=== PATIENT | female | born 1975 | race Two or more races ===

== ENCOUNTER 2025-03-15 18:20 | Inpatient (IN) | payer OTHER ==
[~2025-03-15] VITALS: Ht 162.6 cm; Wt 59.9 kg
--- NOTE | 2025-03-15 18:41 | ED.PDOC ---
GI ASSESSMENT HPI Comments 49-year-old female came to ER for abdominal pain. Patient denies any history of abdominal surgeries. States few hours ago she started having episodes of epigastric abdominal pain, radiating downwards. Omeprazole taken offered no relief for the pain. Patient will then feel nauseated, vomited once, yellowish- blackish in color. Patient went to urgent Care but advised to go to the ER for further evaluation and management Chief Complaint: Abdominal Pain Time Seen by MD: 18:41 Reviewed Notes: Nurses Notes Allergies: Coded Allergies: NO KNOWN ALLERGIES (Unverified , 03/15/25) Information Source: Patient, Relative Mode of Arrival: Ambulatory Timing: Hours Duration: Intermittent Quality: Sharp Vomitus: Coffee Grounds Stool: Normal Severity: Moderate Recent: None Recent Hx of: Ulcer Disease Pain Location: Epigastric Associated sign and symptoms: Nausea, Vomiting, Abdominal Pain Past Medical History PAST MEDICAL HISTORY: Denies Surgical History: Denies all surgeries INTELLIGENCE OPERATIONS History: Denies all INTELLIGENCE OPERATIONS Hx Family History Family History: Reviewed,noncontributory to illness Social History Smoker: Non-Smoker Alcohol: Denies ETOH Use Drugs: Denies Drug Use Lives In: Home Constitutional: denies: chills, diaphoresis, fatigue, fever, malaise, sweats, weakness, others EENTM: denies: blurred vision, double vision, ear bleeding, ear discharge, ear drainage, ear pain, ear ringing, eye pain, eye redness, hearing loss, mouth pain, mouth swelling, nasal discharge, nose bleeding, nose congestion, nose pain, photophobia, tearing, throat pain, throat swelling, voice changes, others Respiratory: denies: cough, hemoptysis, orthopnea, SOB at rest, shortness of breath, SOB with excertion, stridor, wheezing, others Cardiovascular: denies: chest pain, dizzy spells, diaphoresis, Dyspnea on exertion, edema, irregular heart beat, left arm pain, lightheadedness, palpitations, PND, syncope, others Gastrointestinal: reports: abdominal pain, nausea, vomiting; denies: abdomen distended, blood streaked bowels, constipated, diarrhea, dysphagia, difficulty swallowing, hematemesis, melena, poor appetite, poor fluid intake, rectal bleeding, rectal pain, others Genitourinary: denies: abnormal vagina bleeding, burning, dyspareunia, dysuria, flank pain, frequency, hematuria, incontinence, pain, , vagina discharge, urgency, others Neurological: denies: dizziness, fainting, headache, left sided numbness, left sided weakness, numbness, paresthesia, pre-existing deficit, right sided numbness, right sided weakness, seizure, speech problems, tingling, tremors, weakness, others Musculoskeletal: denies: back pain, gout, joint pain, joint swelling, muscle pain, muscle stiffness, neck pain, others Integumetry: denies: bruises, change in color, change in hair/nails, dryness, laceration, lesions, lumps, rash, wounds, others Allergic/Immunocompromised: denies: Difficulty Healing, Frequent Infections, Hives, Itching, others Hematologic/Lymphatic: denies: anemia, blood clots, easy bleeding, easy bruising, swollen glands, others Endocrine: denies: excessive hunger, excessive sweating, excessive thirst, excessive urination, flushing, intolerance to cold, intolerance to heat, unexplained weight gain, unexplained weight loss, others Psychiatric: denies: anxiety, bipolar disorder, depression, hopeless, panic disorder, schizophrenia, sleepless, suicidal, others Physical Exam General Appearance: No Apparent Distress, Normal HEENT: Normal ENT Inspection, Pharynx Normal, TMs Normal Neck: Full Range of Motion, Non-Tender, Normal, Normal Inspection Respiratory: Chest Non-Tender, Lungs Clear, No Accessory Muscle Use, No Respiratory Distress, Normal Breath Sounds Cardiovascular: No Edema, No JVD, No Murmur, No Gallop, Normal Peripheral Pulses, Regular Rate/Rhythm Breast Exam: Deferred Gastrointestinal: Epigastric, No Organomegaly, No Pulsatile Mass, Normal Bowel Sounds, Soft, Tenderness Genitalia: Deferred Pelvic: Deferred Rectal: Deferred Extremities: No calf tenderness, Normal capillary refill, Normal inspection, Normal range of motion, Non-tender, No pedal edema Musculoskeletal : Apperance: Normal Neurologic: Alert, stock grader II-XII nml as Tested, No Motor Deficits, Normal Affect, Normal Mood, No Sensory Deficits Cerebellar Function: Normal Reflexes: Normal Skin: Dry, Normal Color, Warm Lymphatic: No Adenopathy Was a procedure done? Was a procedure done?: No GI differential Dx Differential Diagnosis: Diverticular disease, Gastritis/PUD, Gastroenteritis, GI hemorrhage, Pancreatitis, UTI, Urolithiasis X-Ray, Labs, Meds, VS Vital Signs Date Time Temp Pulse Resp B/P (MAP) Pulse Ox O2 Delivery O2 Flow Rate FiO2 03/15/25 21:21 97.8 65 17 109/55 (73) 100 97.8 03/15/25 20:07 78 20 108/64 03/15/25 20:00 78 20 100 Room Air* 0 21 03/15/25 19:31 98.2 78 20 108/64 (79) 100 98.2 03/15/25 18:22 98.2 60 16 129/59 99 98.2 Lab Test 03/15/25 22:00 03/15/25 18:50 Range/Units Urine Color Yellow Yellow Urine Clarity Clear Clear Urine pH 6.0 5.0-9.0 Urine Specific [place] 1.021 1.001-1.035 Urine Protein Negative Negative Urine Ketones 2+ H Negative Urine Blood Negative Negative /uL Urine Nitrite Negative Negative Urine Bilirubin Negative Negative Urine Urobilinogen Normal Negative mg/dL Urine Leukocyte Esterase Negative Negative /uL Urine RBC 1 0 - 4 /hpf Urine Microscopic WBC 2 0-5 /HPF Urine Squamous Epithelial Cells Few <5 /hpf Urine Bacteria Few H None Seen /hpf Urine Mucus Few None Seen Urine Glucose Normal Normal mg/dL Urine Test Negative Negative White Blood Count 15.1 H 4.4-10.8 10^3/uL Red Blood Count 4.59 4.0-5.20 10^6/uL Hemoglobin 14.4 12.2-16.2 g/dL Hematocrit 43.8 36.0-46.0 % Mean Corpuscular Volume 95.3 80.0-100.0 fL Mean Corpuscular Hemoglobin 31.4 28.0-32.0 pg Mean Corpuscular Hemoglobin Concent 33.0 32.0-36.0 g/dL Red Cell Distribution Width 13.0 11.8-14.3 % Platelet Count 286 140-450 10^3/uL Mean Platelet Volume 8.6 6.9-10.8 fL Neutrophils (%) (Auto) 91.0 H 37.0-80.0 % Lymphocytes (%) (Auto) 5.8 L 10.0-50.0 % Monocytes (%) (Auto) 2.9 0.0-12.0 % Eosinophils (%) (Auto) 0.1 0.0-7.0 % Basophils (%) (Auto) 0.2 0.0-2.0 % Neutrophils # (Auto) 13.8 H 1.6-8.6 10 ^3/uL Lymphocytes # (Auto) 0.9 0.4-5.4 10 ^3/uL Monocytes # (Auto) 0.4 0-1.3 10 ^3/uL Eosinophils # (Auto) 0 0-0.8 10 ^3/uL Basophils # (Auto) 0 0-0.2 10 ^3/uL Nucleated Red Blood Cells 0.0 % Sodium Level 137 136-145 mmol/L Potassium Level 3.7 3.5-5.1 mmol/L Chloride Level 102 98-107 mmol/L Carbon Dioxide Level 25 20-31 mmol/L Anion Gap 10 5-15 Blood Urea Nitrogen 8 L 9-23 mg/dL Creatinine 0.93 0.550-1.02 mg/dL Glomerular Filtration Rate Calc 76 >90 mL/min BUN/Creatinine Ratio 8.6 L 10.0-20.0 Serum Glucose 106 74-106 mg/dL Calcium Level 9.7 8.7-10.4 mg/dL Total Bilirubin 0.8 0.2-1.0 mg/dL Aspartate Amino Transferase (AST) 19 13-40 U/L Alanine Aminotransferase (ALT) 11 7-40 U/L Alkaline Phosphatase 120 H 46-116 U/L Total Protein 8.4 H 5.7-8.2 g/dL Albumin 5.0 H 3.2-4.8 g/dL Lipase 37 12-53 U/L Current Medications Medications (Trade) Dose Ordered Sig/Kerwin Route Start Time Stop Time Status Last Admin Ondansetron HCl (Zofran) 4 mg ONCE ONCE IV 03/15/25 18:45 03/15/25 18:46 DC 03/15/25 20:05 Sodium Chloride 1,000 ml @ 1,000 mls/hr Q1H ONCE IVB 03/15/25 18:45 03/15/25 19:44 DC 03/15/25 20:07 Morphine Sulfate 4 mg ONCE ONCE IV 03/15/25 18:45 03/15/25 18:46 DC 03/15/25 20:07 Time of 1ST Reevaluation: 18:38 Reevaluation 1ST: Unchanged Patient Education/Counseling: Diagnosis, Treatment Family Education/Counseling: Diagnosis, Treatment SEPSIS Sepsis Screen Date sepsis recognized/suspect: Mar 15, 2025 Time Sepsis recognized/suspect: 1821 Recent Procedure: No On Antibiotic Therapy: No Respiratory Rate >20: No Heart Rate >90: No Temp<36 C (96.8 F) or >38.3 C: No SBP <90 or MAP <65 mmHG: No New Acute Mental Status Change: No Is the patient on CPAP, BIPAP,: No Physician Orders Ct Ab Pel With Iv Con Only (03/15/25 18:36) Vital Signs Date Time Temp Pulse Resp B/P (MAP) Pulse Ox O2 Delivery O2 Flow Rate FiO2 03/15/25 21:21 97.8 65 17 109/55 (73) 100 97.8 03/15/25 20:07 78 20 108/64 03/15/25 20:00 78 20 100 Room Air* 0 21 03/15/25 19:31 98.2 78 20 108/64 (79) 100 98.2 03/15/25 18:22 98.2 60 16 129/59 99 98.2 Laboratory Tests Test 03/15/25 18:50 White Blood Count 15.1 10^3/uL (4.4-10.8) H Medications Medications Dose Ordered Sig/[place] Route Start Time Stop Time Status Last Admin Dose Admin Morphine Sulfate 4 mg ONCE ONCE IV 03/15/25 18:45 03/15/25 18:46 DC 03/15/25 20:07 Ondansetron HCl 4 mg ONCE ONCE IV 03/15/25 18:45 03/15/25 18:46 DC 03/15/25 20:05 Sodium Chloride 1,000 ml @ 1,000 mls/hr Q1H ONCE IVB 03/15/25 18:45 03/15/25 19:44 DC 03/15/25 20:07 Departure 1 Departure Time of Disposition: 00:10 Impression: Primary Impression: Appendicitis Disposition: ADMITTED INPATIENT Admit to: Med Surg Condition: Guarded Comments 49-year-old female with generalized abdominal pain and nausea and vomiting. Patient is tender especially around the umbilicus. On lab reviewed white blood cell count is elevated at 15. CT of the abdomen and pelvis shows a enlarged appendix suspicious for appendicitis. Patient will need to be admitted for supportive care and general surgery evaluation for possible appendectomy Critical Care Note Critical Care Time?: No Stability Stability form required: No Heart Score Heart Score: Heart Score Response (Comments) Value History N/A 0 EKG N/A 0 Age N/A 0 Risk Factors N/A 0 Troponin N/A 0 Total 0 I personally scribed for TRU BARCENAS MD ([email or web address]) on 03/15/25 at 18:41. Electronically submitted by Lavell Connor ([email or web address]). TRU BARCENAS MD Mar 15, 2025 18:41
[2025-03-15 19:06] LABS: Hematocrit 43.8 % (36.0-46.0); Hemoglobin 14.4 g/dL (12.2-16.2); Mean Corpuscular Hemoglobin 31.4 pg (28.0-32.0); Mean Corpuscular Volume 95.3 fL (80.0-100.0); Nucleated Red Blood Cells % 0.0 %
[2025-03-15 19:22] LABS: Alanine Aminotransferase 11 U/L (7-40); Anion Gap 10 (5-15); BUN/Creatinine Ratio 8.6 (10.0-20.0); Bilirubin, Total 0.8 mg/dL (0.2-1.0); Calcium 9.7 mg/dL (8.7-10.4); Carbon Dioxide 25 mmol/L (20-31); Chloride 102 mmol/L (98-107); Lipase 37 U/L (12-53); Potassium 3.7 mmol/L (3.5-5.1); Sodium 137 mmol/L (136-145)
[2025-03-15 19:24] LABS: Albumin 5.0 g/dL (3.2-4.8); Alkaline Phosphatase 120 U/L (46-116); Blood Urea Nitrogen 8 mg/dL (9-23); Glucose 106 mg/dL (74-106); Total Protein 8.4 g/dL (5.7-8.2)
[2025-03-15 20:00] VITALS: PULSE 78; RESP 20; O2SAT 100
[2025-03-15] MEDS: ONDANSETRON HCL 4 MG/2 ML VIAL IV ONE (20:05)
[2025-03-15] MEDS: MORPHINE SULFATE 4 MG/ML SYR/VIAL IV ONE (20:07)
[2025-03-15] MEDS: SODIUM CHLORIDE 0.9% 1,000 ML IVB ONE (20:07)
[2025-03-15] MEDS: IOHEXOL 300 MG/ML 100ML BOTTLE IJ ONE (22:05)
[2025-03-15 22:50] LABS: Urine Protein, UAD Negative (Negative)
--- NOTE | 2025-03-15 23:55 | DVH ---
CLINICAL HISTORY: abd pain TECHNIQUE: CT of the abdomen and pelvis was performed with intravenous contrast. 100 mL Omnipaque 300 This exam was performed according to our departmental dose optimization program. Up-to-date CT equip ment and radiation dose reduction techniques are utilized as appropriate. 6.11 CTDIVol: 6.11 mGy DLP: 302.19 mGy-cm WID: COMPARISON: None FINDINGS: Lower Thorax: Unremarkable. Liver and Biliary system: Unremarkable. Spleen: Unremarkable. Adrenal Glands and Kidneys: Normal adrenal glands. No hydronephrosis or nephrolithiasis. There is a tiny cyst in the lower pole right kidney. Pancreas and Retroperitoneum: Unremarkable. Aorta and Major Vessels: Unremarkable. Bowel, Mesentery and Peritoneal space: Normal caliber small and large bowel. There is mild dilatation of the appendix measuring 1 cm on series 2, image 62. Mild ascites. No free air or loculated fluid c ollection. Pelvis: Unremarkable. Abdominal wall and Osseous Structures: Tiny sclerotic foci in the proximal femurs and pelvis. No dest ructive osseous lesion. IMPRESSION: 1. Mild dilatation of the appendix measuring 1 cm. A consideration would be acute appendicitis althou gh no overt inflammation is seen about the appendix. 2. No bowel obstruction, fluid collection, or free air.
[2025-03-16] VITALS (8 sets, daily range): BP systolic 96–107; BP diastolic 56–67; PULSE 61–89; RESP 14–18; TEMP 97.3–98.4; O2SAT 94–100
[2025-03-16] MEDS: SODIUM CHLORIDE 0.9% 1,000 ML IV SCH (01:00)
[2025-03-16] MEDS ORDERED: DOCUSATE SOD 100 MG CAP PO PRN (01:00)
[2025-03-16] MEDS ORDERED: MORPHINE SULFATE INJ 2 MG/ml SYRG IV PRN ×2 (01:00)
[2025-03-16] MEDS ORDERED: ACETAMINOPHEN 325 MG TAB PO PRN (01:00)
[2025-03-16] MEDS ORDERED: ONDANSETRON HCL 4 MG/2 ML VIAL IV PRN ×2 (01:00→12:45)
[2025-03-16] MEDS ORDERED: NITROGLYCERIN 0.4 MG SL TAB SL PRN (01:00)
--- NOTE | 2025-03-16 01:19 | DVHHP2 ---
History of Present Illness Reason for Visit: Appendicitis History of Present Illness The patient is a 49-year-old female who denies past medical history presented to [facility] ED with complaint of abdominal pain. Patient reports she has been experiencing episodes of epigastric abdominal pain, radiating down to lower quadrant, rating 7/10 numeric scale, associated nausea, vomiting yellowish color vomitus, getting worse that prompted this visit. Patient was seen and evaluated in the ED, laboratory data shows WBC 15.1, platelets 286, sodium 137, potassium 3.7, BUN 8, creatinine 0.93, glucose 106, calcium 9.7, protein 8.4, albumin 5.0, lipase 37, blood pressure 110/56, heart rate 72, temperature 98.6 F, O2 saturation 99% on room air. Abdomen/pelvis CT revealing mild dilatation of the appendix measuring 1 cm; a consideration would be acute appendicitis although no overt inflammation is seen about the appendix. Patient was started on IV antibiotic regimen Rocephin, please see medication orders section in the computer. On my assessment, patient denies chest pain, no headache, no dizziness, abdominal pain, nausea or vomiting at this moment, no fever, no chills. Patient was admitted for further evaluation and medical management. Past Medical History Denies past medical history Past Surgical History Denies all surgeries Family History Reviewed, noncontributory to the management of this case. Past Social History The patient lives at home, denies smoking, alcohol or illicit drugs abuse. Review of Systems Constitutional: No: Fever, Chills, Sweats, Weakness, Malaise, Other Eyes: No: Pain, Vision change, Conjunctivae inflammation, Eyelid inflammation, Other, Redness ENT: No: Ear pain, Ear discharge, Nose pain, Nose discharge, Nose congestion, Mouth pain, Mouth swelling, Throat pain, Throat swelling, Other Respiratory: No: Cough, Dry, Shortness of breath, SOB with excertion, Wheezing, Hemoptysis, Pleuritic Pain, Sputum, Wheezing, Other Cardiovascular: No: Chest Pain, Palpitations, Orthopnea, Paroxysmal Noc. Dyspnea, Edema, Lt Headedness, Other Gastrointestinal: Nausea, Vomiting, Abdominal Pain; No: Diarrhea, Constipation, Melena, Hematochezia, Other Genitourinary: No Dysuria, No Frequency, No Incontinence, No Hematuria, No Retention, No Other Musculoskeletal: No: other, neck pain, shoulder pain, arm pain, back pain, hand pain, leg pain, foot pain Skin: No: Rash, Lesions, Jaundice, Bruising, Other Neurological: No: Weakness, Numbness, Incoordination, Change in speech, Confusion, Seizures, Other Allergies: Coded Allergies: NO KNOWN ALLERGIES (Unverified , 03/15/25) Exam Vital Signs Vital Signs Date Time Temp Pulse Resp B/P (MAP) Pulse Ox O2 Delivery O2 Flow Rate FiO2 03/16/25 00:29 98.6 73 17 111/55 (73) 100 98.6 03/15/25 20:00 Room Air* 0 21 General Appearance: Alert, Oriented X3, Cooperative, No acute distress HEENT: Atraumatic, PERRLA, EOMI, Mucous membr. moist/pink Respiratory: Clear to auscultation, Normal air movement Cardiovascular: Regular rate, Normal S1, Normal S2, No murmurs Abdominal: Normal bowel sounds, Soft, No hepatospenomegaly, No masses, Other (Reports tenderness) Extremities: No clubbing, No cyanosis, No edema, Normal pulses, No tenderness/swelling Skin: No rashes, No breakdown, No significant lesion Neuro: Normal gait, Normal speech, Strength at 5/5 X4 ext, Normal tone, Sensation intact, Cranial nerves 3-12 NL, Reflexes 2+ Psych/Mental Status: Mental status NL, Mood NL Labs/Xrays Labs Test 03/15/25 22:00 03/15/25 18:50 Range/Units Urine Color Yellow Yellow Urine Clarity Clear Clear Urine pH 6.0 5.0-9.0 Urine Specific [place] 1.021 1.001-1.035 Urine Protein Negative Negative Urine Ketones 2+ H Negative Urine Blood Negative Negative /uL Urine Nitrite Negative Negative Urine Bilirubin Negative Negative Urine Urobilinogen Normal Negative mg/dL Urine Leukocyte Esterase Negative Negative /uL Urine RBC 1 0 - 4 /hpf Urine Microscopic WBC 2 0-5 /HPF Urine Squamous Epithelial Cells Few <5 /hpf Urine Bacteria Few H None Seen /hpf Urine Mucus Few None Seen Urine Glucose Normal Normal mg/dL Urine Test Negative Negative White Blood Count 15.1 H 4.4-10.8 10^3/uL Red Blood Count 4.59 4.0-5.20 10^6/uL Hemoglobin 14.4 12.2-16.2 g/dL Hematocrit 43.8 36.0-46.0 % Mean Corpuscular Volume 95.3 80.0-100.0 fL Mean Corpuscular Hemoglobin 31.4 28.0-32.0 pg Mean Corpuscular Hemoglobin Concent 33.0 32.0-36.0 g/dL Red Cell Distribution Width 13.0 11.8-14.3 % Platelet Count 286 140-450 10^3/uL Mean Platelet Volume 8.6 6.9-10.8 fL Neutrophils (%) (Auto) 91.0 H 37.0-80.0 % Lymphocytes (%) (Auto) 5.8 L 10.0-50.0 % Monocytes (%) (Auto) 2.9 0.0-12.0 % Eosinophils (%) (Auto) 0.1 0.0-7.0 % Basophils (%) (Auto) 0.2 0.0-2.0 % Neutrophils # (Auto) 13.8 H 1.6-8.6 10 ^3/uL Lymphocytes # (Auto) 0.9 0.4-5.4 10 ^3/uL Monocytes # (Auto) 0.4 0-1.3 10 ^3/uL Eosinophils # (Auto) 0 0-0.8 10 ^3/uL Basophils # (Auto) 0 0-0.2 10 ^3/uL Nucleated Red Blood Cells 0.0 % Sodium Level 137 136-145 mmol/L Potassium Level 3.7 3.5-5.1 mmol/L Chloride Level 102 98-107 mmol/L Carbon Dioxide Level 25 20-31 mmol/L Anion Gap 10 5-15 Blood Urea Nitrogen 8 L 9-23 mg/dL Creatinine 0.93 0.550-1.02 mg/dL Glomerular Filtration Rate Calc 76 >90 mL/min BUN/Creatinine Ratio 8.6 L 10.0-20.0 Serum Glucose 106 74-106 mg/dL Calcium Level 9.7 8.7-10.4 mg/dL Total Bilirubin 0.8 0.2-1.0 mg/dL Aspartate Amino Transferase (AST) 19 13-40 U/L Alanine Aminotransferase (ALT) 11 7-40 U/L Alkaline Phosphatase 120 H 46-116 U/L Total Protein 8.4 H 5.7-8.2 g/dL Albumin 5.0 H 3.2-4.8 g/dL Lipase 37 12-53 U/L PATIENT: MAYRA ANGUIANOACCT: [id number] UNIT: [id number] : 1975 LOC: ER ROOM / BED: / AGE / SEX: 49 / F ADM STATUS: REG ER SERVICE 1836 ORDERING PHYSICIAN: TRU BARCENAS MD PROCEDURE(s): ABPLIV - CT AB PEL WITH IV CON ONLY REASON: abd pain ORDER NUMBER(s): [id number], ACCESSION NUMBER(s): [id number] CLINICAL HISTORY: abd pain TECHNIQUE: CT of the abdomen and pelvis was performed with intravenous contrast. 100 mL Omnipaque 300 This exam was performed according to our departmental dose optimization program. Up-to-date CT equipment and radiation dose reduction techniques are utilized as appropriate. 6.11 CTDIVol: 6.11 mGy DLP: 302.19 mGy-cm WID: COMPARISON: None FINDINGS: Lower Thorax: Unremarkable. Liver and Biliary system: Unremarkable. Spleen: Unremarkable. Adrenal Glands and Kidneys: Normal adrenal glands. No hydronephrosis or nephrolithiasis. There is a tiny cyst in the lower pole right kidney. Pancreas and Retroperitoneum: Unremarkable. Aorta and Major Vessels: Unremarkable. Bowel, Mesentery and Peritoneal space: Normal caliber small and large bowel. There is mild dilatation of the appendix measuring 1 cm on series 2, image 62. Mild ascites. No free air or loculated fluid collection. Pelvis: Unremarkable. Abdominal wall and Osseous Structures: Tiny sclerotic foci in the proximal femurs and pelvis. No destructive osseous lesion. IMPRESSION: 1. Mild dilatation of the appendix measuring 1 cm. A consideration would be acute appendicitis although no overt inflammation is seen about the appendix. 2. No bowel obstruction, fluid collection, or free air. SEPSIS Sepsis Screen Date sepsis recognized/suspect: Mar 15, 2025 Time Sepsis recognized/suspect: 1821 Recent Procedure: No On Antibiotic Therapy: No Respiratory Rate >20: No Heart Rate >90: No Temp<36 C (96.8 F) or >38.3 C: No SBP <90 or MAP <65 mmHG: No New Acute Mental Status Change: No Is the patient on CPAP, BIPAP,: No Physician Orders Ct Ab Pel With Iv Con Only (03/15/25 18:36) Complete Blood Count (03/16/25 04:00) Comprehensive Metabolic Panel (03/16/25 04:00) Blood Culture (03/16/25 00:48) Ceftriaxone Ivpb Rocephin (03/16/25 09:00) Ceftriaxone Ivpb Rocephin (03/16/25 01:00) * Surgical Consult (03/16/25 ) Admit (03/16/25 00:48) Allergies (03/16/25 00:48) Code Status (03/16/25 00:48) 0.9% Ns 1000 Ml (03/16/25 01:00) Oxygen Per Hour (03/16/25 00:48) Hydrocodone-Acet 5/325mg Tab ([place] 5/32 (03/16/25 01:00) Ondansetron Hcl (Zofran) (03/16/25 01:00) Docusate Sodium Capsule (Colace Capsule) (03/16/25 01:00) Complete Blood Count (03/17/25 04:00) Comprehensive Metabolic Panel (03/17/25 04:00) Npo (Nothing By Mouth) Diet (03/16/25 Breakfast) Condition: Serious (03/16/25 00:48) Acetaminophen Tablet (Tylenol Tablet) (03/16/25 01:00) Bedrest With Bathroom Privileg (03/16/25 00:48) Morphine Sulfate Injection (03/16/25 01:00) Sequential Compression Device (03/16/25 ) Nitroglycerin Sublingual (Ntrostat Subli (03/16/25 01:00) Morphine Sulfate Injection (03/16/25 01:00) Notify Md Of Changes From Base (03/16/25 00:48) Emergency Dysrhythmia Protocol (03/16/25 00:48) Oxygen By Nasal Cannula (03/16/25 00:48) Vital Signs Date Time Temp Pulse Resp B/P (MAP) Pulse Ox O2 Delivery O2 Flow Rate FiO2 03/16/25 00:29 98.6 73 17 111/55 (73) 100 98.6 03/15/25 21:21 97.8 65 17 109/55 (73) 100 97.8 03/15/25 20:07 78 20 108/64 03/15/25 20:00 78 20 100 Room Air* 0 21 03/15/25 19:31 98.2 78 20 108/64 (79) 100 98.2 03/15/25 18:22 98.2 60 16 129/59 99 98.2 Laboratory Tests Test 03/15/25 18:50 White Blood Count 15.1 10^3/uL (4.4-10.8) H Medications Medications Dose Ordered Sig/[place] Route Start Time Stop Time Status Last Admin Dose Admin Morphine Sulfate 4 mg ONCE ONCE IV 03/15/25 18:45 03/15/25 18:46 DC 03/15/25 20:07 4 MG Ondansetron HCl 4 mg ONCE ONCE IV 03/15/25 18:45 03/15/25 18:46 DC 03/15/25 20:05 4 MG Sodium Chloride 1,000 ml @ 1,000 mls/hr Q1H ONCE IVB 03/15/25 18:45 03/15/25 19:44 DC 03/15/25 20:07 1,000 MLS/HR Assessment/Plan Assessment/Plan Appendicitis Acute abdominal pain Leukocytosis, unspecified Plan 1. Admit to med surge unit 2. Breathing treatment 3. Pain control management 4. IV antibiotic management 5. Management of fluids and electrolytes 6. Consultation for surgery 7. Diagnostic test abdomen/pelvic CT 8. DVT prophylaxis-on SCDs 9. Repeat labs CBC, CMP in a.m. 10. Continue with current medical management 11. Treatment plan discussed with patient and RN. Patient verbalized understanding. Plan discussed with: Patient, Other (RN) My Orders Orders - BARBARA BROWN DNP Procedure Category Date Status Time Complete Blood Count LAB 03/16/25 Verified 04:00 Comprehensive LAB 03/16/25 Verified Metabolic Panel 04:00 Blood Culture PIA 03/16/25 Verified 00:48 Ceftriaxone Ivpb PHA 03/16/25 Verified Rocephin 09:00 Ceftriaxone Ivpb PHA 03/16/25 Verified Rocephin 01:00 * Surgical Consult CONS 03/16/25 Verified Admit ADMIT 03/16/25 Verified 00:48 Allergies MCKAYLA 03/16/25 Verified 00:48 Code Status CODE 03/16/25 Verified 00:48 0.9% Ns 1000 Ml PHA 03/16/25 Verified 01:00 Oxygen Per Hour RT 03/16/25 Verified 00:48 Hydrocodone-Acet PHA 03/16/25 Verified 5/325mg Tab ([place] 01:00 Ondansetron Hcl PHA 03/16/25 Verified (Zofran) 01:00 Docusate Sodium PHA 03/16/25 Verified Capsule (Colace 01:00 Complete Blood Count LAB 03/17/25 Verified 04:00 Comprehensive LAB 03/17/25 Verified Metabolic Panel 04:00 Npo (Nothing By DIET 03/16/25 Verified Mouth) Diet Breakfast Condition: Serious MCKAYLA 03/16/25 Verified 00:48 Acetaminophen Tablet PHA 03/16/25 Verified (Tylenol Tablet) 01:00 Bedrest With Bathroom MCKAYLA 03/16/25 Verified Privileg 00:48 Morphine Sulfate PHA 03/16/25 Verified Injection 01:00 Sequential [facility] 03/16/25 Verified Compression Device Nitroglycerin [facility] 03/16/25 Verified Sublingual (Ntrostat 01:00 Morphine Sulfate PHA 03/16/25 Verified Injection 01:00 Notify Of Changes [facility] 03/16/25 Verified From Base 00:48 Emergency Dysrhythmia [facility] 03/16/25 Verified Protocol 00:48 Oxygen By Nasal RT 03/16/25 Verified Cannula 00:48 Problem List: (1) Appendicitis (2) Acute abdominal pain (3) Leukocytosis, unspecified Date of Service: Mar 16, 2025 Billing Provider: BARBARA BROWN DNP Common Visit Codes: [id number] INP/OBS CARE (HIGH) BARBARA BROWN DNP Mar 16, 2025 01:19
[2025-03-16 05:12] LABS: Hematocrit 39.3 % (36.0-46.0); Hemoglobin 13.4 g/dL (12.2-16.2); Mean Corpuscular Hemoglobin 32.2 pg (28.0-32.0); Mean Corpuscular Volume 94.8 fL (80.0-100.0); Nucleated Red Blood Cells % 0.1 %
[2025-03-16 05:32] LABS: Alanine Aminotransferase 10 U/L (7-40); Albumin 4.4 g/dL (3.2-4.8); Alkaline Phosphatase 105 U/L (46-116); Anion Gap 11 (5-15); Calcium 9.0 mg/dL (8.7-10.4); Carbon Dioxide 21 mmol/L (20-31); Chloride 104 mmol/L (98-107); Glucose 100 mg/dL (74-106); Potassium 3.9 mmol/L (3.5-5.1); Sodium 136 mmol/L (136-145); Total Protein 7.6 g/dL (5.7-8.2)
[2025-03-16 05:33] LABS: Bilirubin, Total 0.8 mg/dL (0.2-1.0)
[2025-03-16 05:39] LABS: BUN/Creatinine Ratio 5.7 (10.0-20.0); Blood Urea Nitrogen < 5 mg/dL (9-23)
--- NOTE | 2025-03-16 11:33 | DVHINCON2 ---
Date of service: Mar 16, 2025 History of Present Illness 49-year-old otherwise healthy female complaining of one day history of epigastric abdominal pain now localized to the right lower quadrant associated with chills and nausea. Patient denies any previous similar episodes. Past Medical History None Past Surgical History None Family History Noncontributory Social History Patient is . Denies any alcohol, tobacco, IV drug use. Allergies: Coded Allergies: NO KNOWN ALLERGIES (Unverified , 03/15/25) Current Medications Current Medications Medications (Trade) Dose Ordered Sig/Kerwin Route PRN Reason Start Time Stop Time Status Last Admin Ceftriaxone Sodium 50 ml @ 100 mls/hr DAILY@09 IV 03/17/25 09:00 03/16/25 09:55 DC Sodium Chloride 1,000 ml @ 60 mls/hr [id number] IV 03/16/25 01:00 03/16/25 04:41 Acetaminophen/ Hydrocodone Bitart ([place] 5/325MG Tab) 1 tab Q4HP PRN PO MODERATE PAIN (4-6 PAIN SCALE) 03/16/25 01:00 Ondansetron HCl (Zofran) 4 mg Q4HP PRN IV NAUSEA / VOMITING 03/16/25 01:00 03/16/25 09:55 DC Docusate Sodium (Colace Capsule) 100 mg BIDPRN PRN PO FOR CONSTIPATION 03/16/25 01:00 03/16/25 09:55 DC Acetaminophen (Tylenol Tablet) 650 mg Q6HP PRN PO PAIN SCALE 1-3 OR TEMP>100.4 03/16/25 01:00 Morphine Sulfate 2 mg Q4HPRN PRN IV SEVERE PAIN (7-10 PAIN SCALE) 03/16/25 01:00 Nitroglycerin (Ntrostat Sublingual) 0.4 mg Q5MINP PRN SL FOR CHEST PAIN 03/16/25 01:00 03/16/25 09:55 DC Morphine Sulfate 2 mg Q30M PRN IV FOR CHEST PAIN 03/16/25 01:00 03/16/25 09:55 DC Piperacillin Sod/ Tazobactam Sod 100 ml @ 25 mls/hr Q8HR IV 03/16/25 14:00 Vital Signs Vital Signs Date Time Temp Pulse Resp B/P (MAP) Pulse Ox O2 Delivery O2 Flow Rate FiO2 03/16/25 08:42 98.4 89 16 107/67 (80) 98 98.4 03/16/25 03:35 Room Air* 0 21 Physical Exam GEN: Age-appropriate female in no acute distress. Alert. HEENT: Normocephalic atraumatic. Moist mucous membranes. Anicteric sclerae. CV: RRR Respiratory: CTAB ABD: Minimal bilateral lower quadrant tenderness to palpation especially in the right lower quadrant with minimal guarding. Nondistended. CT of the abdomen and pelvis: Appendix measuring up to 1 cm with mild ascites. Consideration would be acute appendicitis all the no overt inflammation is seen in about the appendix. Spleen: Unremarkable. Adrenal Glands and Kidneys: Normal adrenal glands. No hydronephrosis or ne phrolithiasis. There is a tiny cyst in the lower pole right kidney. Pancreas and Retroperitoneum: Unremarkable. Aorta and Major Vessels: Unremarkable. Bowel, Mesentery and Peritoneal space: Normal caliber small and large bowel. There is mild dilatation of the appendix measuring 1 cm on series 2, image 62. Mild ascites. No free air or loculated fluid collection. Pelvis: Unremarkable. Abdominal wall and Osseous Structures: Tiny sclerotic foci in the proximal femurs and pelvis. No destructive osseous lesion. IMPRESSION: 1. Mild dilatation of the appendix measuring 1 cm. A consideration would be acute appendicitis although no overt inflammation is seen about the appendix. 2. No bowel obstruction, fluid collection, or free air. Labs/Diagnostic Data Labs Test 03/16/25 04:56 03/15/25 22:00 03/15/25 18:50 Range/Units White Blood Count 13.4 H 4.4-10.8 10^3/uL Red Blood Count 4.15 4.0-5.20 10^6/uL Hemoglobin 13.4 12.2-16.2 g/dL Hematocrit 39.3 # 36.0-46.0 % Mean Corpuscular Volume 94.8 80.0-100.0 fL Mean Corpuscular Hemoglobin 32.2 H 28.0-32.0 pg Mean Corpuscular Hemoglobin Concent 34.0 32.0-36.0 g/dL Red Cell Distribution Width 12.8 11.8-14.3 % Platelet Count 232 140-450 10^3/uL Mean Platelet Volume 8.9 6.9-10.8 fL Neutrophils (%) (Auto) 85.4 H 37.0-80.0 % Lymphocytes (%) (Auto) 9.9 L 10.0-50.0 % Monocytes (%) (Auto) 4.4 0.0-12.0 % Eosinophils (%) (Auto) 0.0 0.0-7.0 % Basophils (%) (Auto) 0.3 0.0-2.0 % Neutrophils # (Auto) 11.4 H 1.6-8.6 10 ^3/uL Lymphocytes # (Auto) 1.3 0.4-5.4 10 ^3/uL Monocytes # (Auto) 0.6 0-1.3 10 ^3/uL Eosinophils # (Auto) 0 0-0.8 10 ^3/uL Basophils # (Auto) 0 0-0.2 10 ^3/uL Nucleated Red Blood Cells 0.1 % Sodium Level 136 136-145 mmol/L Potassium Level 3.9 3.5-5.1 mmol/L Chloride Level 104 98-107 mmol/L Carbon Dioxide Level 21 20-31 mmol/L Anion Gap 11 5-15 Blood Urea Nitrogen < 5 L 9-23 mg/dL Creatinine 0.87 0.550-1.02 mg/dL Glomerular Filtration Rate Calc 83 >90 mL/min BUN/Creatinine Ratio 5.7 L 10.0-20.0 Serum Glucose 100 74-106 mg/dL Calcium Level 9.0 8.7-10.4 mg/dL Total Bilirubin 0.8 0.2-1.0 mg/dL Aspartate Amino Transferase (AST) 18 13-40 U/L Alanine Aminotransferase (ALT) 10 7-40 U/L Alkaline Phosphatase 105 46-116 U/L Total Protein 7.6 5.7-8.2 g/dL Albumin 4.4 3.2-4.8 g/dL Urine Color Yellow Yellow Urine Clarity Clear Clear Urine pH 6.0 5.0-9.0 Urine Specific [place] 1.021 1.001-1.035 Urine Protein Negative Negative Urine Ketones 2+ H Negative Urine Blood Negative Negative /uL Urine Nitrite Negative Negative Urine Bilirubin Negative Negative Urine Urobilinogen Normal Negative mg/dL Urine Leukocyte Esterase Negative Negative /uL Urine RBC 1 0 - 4 /hpf Urine Microscopic WBC 2 0-5 /HPF Urine Squamous Epithelial Cells Few <5 /hpf Urine Bacteria Few H None Seen /hpf Urine Mucus Few None Seen Urine Glucose Normal Normal mg/dL Urine Test Negative Negative Lipase 37 12-53 U/L Assessment 1. Probable acute appendicitis Plan/Recommendation 1. I have offered the patient two options: One is to proceed with a traditional laparoscopic appendectomy. The other option was to try overnight antibiotics and see if she clinically improves. The patient opted to proceed with surgery. Informed consent: The surgery and its risks including but not limited to infection, bleeding requiring possible blood transfusion with the risk of hepatitis or HIV infection, possible open surgery, possibility that the abdominal pain is caused by different intra-abdominal pathology other than acute appendicitis in which case we will proceed with the appendectomy if it is safe to do so and then treat the problem according to intraoperative findings were explained to the patient. All questions were answered to her satisfaction. She expressed verbal understanding and wished to proceed with the surgery. Plan discussed with: Patient, Spouse TANA HAWTHORNE MD Mar 16, 2025 11:33
[2025-03-16] MEDS: PIPERACILLIN-TAZOB 3.375GM 100 ML IV ONE (12:35)
[2025-03-16] MEDS: SODIUM CHLORIDE 0.9% 1,000 ML IV ONE (12:35)
[2025-03-16] MEDS ORDERED: HYDROmorphone HCL 2 MG/ML VL/or syr IV PRN (12:45)
[2025-03-16] MEDS ORDERED: LIDOCAINE 2% (LOCAL ANESTH.) PF 5ml SDV ONE (12:49)
[2025-03-16] MEDS ORDERED: METOCLOPRAMIDE HCL 5MG/ml INJ 2ml VIAL ONE (12:49)
[2025-03-16] MEDS ORDERED: ONDANSETRON HCL 4 MG/2 ML VIAL ONE (12:49)
[2025-03-16] MEDS ORDERED: MIDAZOLAM HCL 2MG/2ML 2ml VIAL (1mg/ml) ONE (12:49)
[2025-03-16] MEDS ORDERED: fentaNYL CITRATE 100 MCG/2 ML VL ONE (12:49)
[2025-03-16] MEDS ORDERED: PROPOFOL 10 MG/ML 20 ML IV ONE (12:50)
[2025-03-16 13:18] LABS: INR 1.03 (0.9-1.15); Partial Thromboplastin Time 31.5 SEC (24.5-34.5); Prothrombin Time 10.9 sec (9.3-11.8)
[2025-03-16] MEDS ORDERED: HYDROmorphone HCL 2 MG/ML VL/or syr ONE (13:18)
[2025-03-16] MEDS ORDERED: SUGAMMADEX 200mg/2ml Vial (100MG/ML) IV ONE (13:18)
[2025-03-16] MEDS: LIDOCAINE W/ EPINEPHRINE 1% 20ML VIAL ONE (13:35)
--- NOTE | 2025-03-16 13:48 | DVHOP2 ---
Operative Report - 2 Report Details Date: 03/16/25 Preop Diagnosis: Acute appendicitis Postop Diagnosis: Same Surgeon: Tana Hawthorne MD [employer] Forming Machine Operator: None Anesthesiologist: Ash Lutz CRNA Anesthesia: General, Local Consent: The surgery and its risks including but not limited to infection, bleeding requiring possible blood transfusion with the risk of hepatitis or HIV infection, possible open surgery, possibility that the abdominal pain is caused by different intra-abdominal pathology other than acute appendicitis in which case we will proceed with the appendectomy if it is safe to do so and then treat the problem according to intraoperative findings, possible perioperative MA or stroke were explained to the patient and her . All questions were answered to their satisfaction. The patient expressed verbal understanding and wished to proceed with the surgery. Complications: None Estimated Blood Loss: 20 mL Fluids: 500 mL Name of Procedure Performed Laparoscopic appendectomy Procedure Details Procedure Details: After induction of general anesthesia, a Shaffer catheter was placed by the OR nursing staff. Patient's abdomen was then prepped and draped in standard ohara rgical fashion. A small infraumbilical incision was made and this is incision was taken through the abdominal wall down to the fascia which was opened sharply. Peritoneum was then bluntly divided gaining access to the intra- abdominal cavity. Interrupted 0 Vicryl sutures were placed through the fascial incision and using an open technique, Shiloh trocar was introduced and secured using the Vicryl sutures. Abdomen was insufflated to 15 mmHg. Camera was inserted. Visual examination of the intestine under the fascial incision appeared normal without injury. Under direct visualization, a 5 mm bladeless trocar was placed in the left lower quadrant and a 2nd 5 mm bladeless trocar was placed in the suprapubic region both under direct visualization. Examination of the right lower quadrant revealed inflamed and dilated appendix without perforation. Endovascular stapler was used to staple across the mesoappendix to the base of the appendix. The base of the appendix was then stapled and divided using a regular endo stapler. The appendix was then removed from the abdominal cavity using an endo pouch bag and sent off the surgical field. Abdomen was then re-insufflated. The staple line appeared intact without bleeding or leaks. There was small amount of serosanguineous fluid collected in the pelvis pelvic cul-de-sac and this was aspirated away. Pelvic area was then well irrigated until fluid was clear. Trocars were then removed under direct visualization as the abdomen was deflated. Additional interrupted 0 Vicryl sutures were placed through the fascial incision and these were tied down closing off the infraumbilical fascia. Surgical sites were irrigated injected with 15 mL of 1% lidocaine with epinephrine. Skin incisions were closed using 4-0 Monocryl sutures in subcuticular fashion. Surgical sites were cleaned and dried and dressings were applied. Sponge, needle, instrument count at the end of the case were reported to be correct by the nursing staff. The patient tolerated procedure well. At the time of dictation, she is being awakened from general anesthesia. Specimen: Appendix Condition Stable Disposition Still a Patient TANA HAWTHORNE MD Mar 16, 2025 13:48
[2025-03-16] MEDS ORDERED: NALOXONE HCL 0.4 MG/ML VIAL ONE (13:52)
[2025-03-16] MEDS: PIPERACILLIN-TAZOB 3.375GM 100 ML IV SCH (14:00)
[2025-03-16] MEDS: ACETAMINOPHEN IV 1000 MG/100ML (10MG/ML) IV ONE (14:13)
[2025-03-16] MEDS: ACETAMINOPHEN IV 100 ML IV ONE (14:13)
--- NOTE | 2025-03-16 16:26 | DVHPN2 ---
Assessment/Plan Assessment/Plan Subjective History of Present Illness This is a 49-year-old female with no significant past medical history admitted for abdominal pain. The patient presented with abdominal pain, specifically in the right lower quadrant. She also reported mild suprapubic tenderness. The pain was exacerbated by the psoas sign test. The patient was evaluated in the Emergency Department, where an abdominal scan revealed mild dilatation of the appendix measuring one centimeter, although no overt inflammation was noted. The patient was seen by surgery and subsequently underwent a laparoscopic appendectomy. Her current condition is described as comfortable, with stable vital signs. Objective Vital Signs - Heart Rate: 72 bpm - Respiratory Rate: 18 breaths per minute - Blood Pressure: 115/62 mmHg - Oxygen Saturation: 98% on room air Physical Examination General: Alert and oriented x4. Respiratory: Clear breath sounds. Cardiovascular: Regular rate and rhythm. JONI. Abdomen: Soft. Mild tender right lower quadrant on palpation. No epigastric tenderness. Mild suprapubic tenderness. Mild tenderness on psoas sign. Musculoskeletal: No lower extremity edema. Laboratory, Imaging, and Diagnostic Test Results - Abdominal CT: - Mild dilatation of the appendix measuring 1 cm - No overt inflammation seen - Labs: - WBC: 15 (elevated) - UA: Few bacteria, relatively bland Assessment & Plan Assessment - Acute appendicitis - Abdominal pain Plan - Proceed with laparoscopic appendectomy - Clear liquid diet - Continue Zosyn - Pain management - Encourage ambulation tomorrow Diet: Clear liquid diet DVT PPX: Ambulatory GI PPX: Not indicated. Code Status: Full Code. Plan discussed with: Patient My Orders Orders - DERIK SINGER MD Procedure Category Date Status Time Piperacillin-Tazob PHA 03/16/25 In Process 3.375gm (Zosyn 3.375g 14:00 Date of Service: Mar 16, 2025 Billing Provider: DERIK SINGER MD Common Visit Codes: [id number] INP/OBS CARE(HIGH) DERIK SINGER MD Mar 16, 2025 16:26
[2025-03-16] MEDS: HYDROcodone-ACET 5/325MG TAB PO PRN (17:50)
[2025-03-17 01:00] VITALS: BP 108/70; PULSE 63; RESP 19; TEMP 98.1; O2SAT 100
[2025-03-17 05:00] VITALS: BP 104/54; PULSE 71; RESP 18; TEMP 97.5; O2SAT 96
[2025-03-17 08:11] LABS: Hematocrit 34.8 % (36.0-46.0); Hemoglobin 11.9 g/dL (12.2-16.2); Mean Corpuscular Hemoglobin 31.9 pg (28.0-32.0); Mean Corpuscular Volume 93.7 fL (80.0-100.0); Nucleated Red Blood Cells % 0.1 %
[2025-03-17 09:00] VITALS: BP 126/73; PULSE 66; RESP 17; TEMP 97.5; O2SAT 97
[2025-03-17 09:09] LABS: Albumin 3.6 g/dL (3.2-4.8); Alkaline Phosphatase 78 U/L (46-116); Anion Gap 10 (5-15); BUN/Creatinine Ratio 6.6 (10.0-20.0); Carbon Dioxide 25 mmol/L (20-31); Chloride 106 mmol/L (98-107); Sodium 141 mmol/L (136-145); Total Protein 6.3 g/dL (5.7-8.2)
[2025-03-17 09:10] LABS: Bilirubin, Total 0.6 mg/dL (0.2-1.0)
[2025-03-17 09:12] LABS: Glucose 69 mg/dL (74-106); Potassium 3.3 mmol/L (3.5-5.1)
[2025-03-17 09:13] LABS: Alanine Aminotransferase < 9 U/L (7-40); Blood Urea Nitrogen 6 mg/dL (9-23); Calcium 8.2 mg/dL (8.7-10.4)
--- NOTE | 2025-03-17 10:45 | DVHPN2 ---
Progress Note - Dictate Date Seen: Mar 17, 2025 Medical Necessity Reason Pt with a Central, PICC or Fol: No Subjective E: no major events o/n. no complaints. vital signs Vital Sign Date Time Temp Pulse Resp B/P (MAP) Pulse Ox O2 Delivery O2 Flow Rate FiO2 03/17/25 05:00 97.5 71 18 104/54 (71) 96 97.5 03/16/25 20:00 Room Air* 0 21 Total Intake and Output 03/16/25 03/16/25 03/17/25 15:00 23:00 07:00 Intake Total 300 ml Balance 300 ml medications Current Medications Medications Dose Ordered Sig/Kerwin Route Start Time Stop Time Status Last Admin Dose Admin Sodium Chloride 1,000 ml @ 60 mls/hr [id number] IV 03/16/25 01:00 03/16/25 04:41 60 MLS/HR Acetaminophen/ Hydrocodone Bitart 1 tab Q4HP PRN PO 03/16/25 01:00 03/17/25 08:54 1 TAB Acetaminophen 650 mg Q6HP PRN PO 03/16/25 01:00 Morphine Sulfate 2 mg Q4HPRN PRN IV 03/16/25 01:00 Piperacillin Sod/ Tazobactam Sod 100 ml @ 25 mls/hr Q8HR IV 03/16/25 14:00 03/17/25 06:36 25 MLS/HR objective GEN: NAD ABD: surgical dressings clean and dry. laboratory and microbiology Laboratory Tests 03/17/25 06:47 Test 03/17/25 06:47 Range/Units Serum Glucose 69 L 74-106 mg/dL Assessment/Plan A: 1. s/p lap appendectomy POD #1 doing well. P: 1. stable from surgery POV for DC home per hospitalist. 2. remove top bandages tomorrow. Leave steristrips on. ok to get incisions wet tomorrow. 3. call [phone] for f/u appt next week. Plan discussed with: Patient, Spouse TANA HAWTHORNE MD Mar 17, 2025 10:45
[2025-03-17 12:40] VITALS: BP 136/79; PULSE 66; RESP 14; TEMP 97.8; O2SAT 97
[2025-03-17] MEDS ORDERED: ACET-1079 PO ×2 (14:06→15:07)
[2025-03-17] MEDS ORDERED: CEPH250C PO ×2 (14:06→15:07)
[2025-03-17] MEDS ORDERED: HYDR-4902 PO ×3 (14:06→17:02)
--- NOTE | 2025-03-17 14:11 | DVHDS2 ---
Discharge Summary Date of Admission Mar 16, 2025 at 00:48 Date of Discharge: Mar 17, 2025 Labs/Diagnostic Data: Laboratory Results Test 03/17/25 06:47 03/16/25 12:50 03/15/25 22:00 03/15/25 18:50 White Blood Count 5.8 10^3/uL (4.4-10.8) Red Blood Count 3.72 10^6/uL (4.0-5.20) Hemoglobin 11.9 g/dL (12.2-16.2) Hematocrit 34.8 % (36.0-46.0) Mean Corpuscular Volume 93.7 fL (80.0-100.0) Mean Corpuscular Hemoglobin 31.9 pg (28.0-32.0) Mean Corpuscular Hemoglobin Concent 34.0 g/dL (32.0-36.0) Red Cell Distribution Width 12.9 % (11.8-14.3) Platelet Count 216 10^3/uL (140-450) Mean Platelet Volume 9.3 fL (6.9-10.8) Neutrophils (%) (Auto) 67.9 % (37.0-80.0) Lymphocytes (%) (Auto) 24.6 % (10.0-50.0) Monocytes (%) (Auto) 6.1 % (0.0-12.0) Eosinophils (%) (Auto) 1.0 % (0.0-7.0) Basophils (%) (Auto) 0.4 % (0.0-2.0) Neutrophils # (Auto) 3.9 10 ^3/uL (1.6-8.6) Lymphocytes # (Auto) 1.4 10 ^3/uL (0.4-5.4) Monocytes # (Auto) 0.4 10 ^3/uL (0-1.3) Eosinophils # (Auto) 0.1 10 ^3/uL (0-0.8) Basophils # (Auto) 0 10 ^3/uL (0-0.2) Nucleated Red Blood Cells 0.1 % Sodium Level 141 mmol/L (136-145) Potassium Level 3.3 mmol/L (3.5-5.1) Chloride Level 106 mmol/L (98-107) Carbon Dioxide Level 25 mmol/L (20-31) Anion Gap 10 (5-15) Blood Urea Nitrogen 6 mg/dL (9-23) Creatinine 0.91 mg/dL (0.550-1.02) Glomerular Filtration Rate Calc 78 mL/min (>90) BUN/Creatinine Ratio 6.6 (10.0-20.0) Serum Glucose 69 mg/dL (74-106) Calcium Level 8.2 mg/dL (8.7-10.4) Total Bilirubin 0.6 mg/dL (0.2-1.0) Aspartate Amino Transferase (AST) 15 U/L (13-40) Alanine Aminotransferase (ALT) < 9 U/L (7-40) Alkaline Phosphatase 78 U/L (46-116) Total Protein 6.3 g/dL (5.7-8.2) Albumin 3.6 g/dL (3.2-4.8) Prothrombin Time 10.9 sec (9.3-11.8) Prothrombin Time INR 1.03 (0.9-1.15) Activated Partial Thromboplast Time 31.5 SEC (24.5-34.5) Urine Color Yellow (Yellow) Urine Clarity Clear (Clear) Urine pH 6.0 (5.0-9.0) Urine Specific [place] 1.021 (1.001-1.035) Urine Protein Negative (Negative) Urine Ketones 2+ (Negative) Urine Blood Negative /uL (Negative) Urine Nitrite Negative (Negative) Urine Bilirubin Negative (Negative) Urine Urobilinogen Normal mg/dL (Negative) Urine Leukocyte Esterase Negative /uL (Negative) Urine RBC 1 /hpf (0 - 4) Urine Microscopic WBC 2 /HPF (0-5) Urine Squamous Epithelial Cells Few /hpf (<5) Urine Bacteria Few /hpf (None Seen) Urine Mucus Few (None Seen) Urine Glucose Normal mg/dL (Normal) Urine Test Negative (Negative) Lipase 37 U/L (12-53) Other Laboratory Tests 03/17/25 06:47 Brief Hx & Hospital Course: Emily Benedict, a 49-year-old female with no significant past medical history, presented with right lower quadrant abdominal pain and mild suprapubic tenderness. Physical exam revealed tenderness with positive psoas sign. CT showed mild appendiceal dilatation (1cm) without overt inflammation. Labs showed elevated WBC of 15. She underwent laparoscopic appendectomy for acute appendicitis and is currently stable. Management includes Zosyn, pain control, clear liquid diet, and early ambulation. s/p lap appy, cleared by surgery, stable to dc home. has urinary symptoms, will dc with keflex and pain managment. f/u with surg, [facility] and [facility] Condition at Discharge: Stable Final Diagnosis/Problems List acute appendicitis s/p laparoscopic appy UTI Discharge Disposition: Home Discharge Instruct/Medications Diet: See Comment Diet comment: liquid for 2 days, advance as tolerated at home Activity: No Restrictions, As Tolerated Follow Up/Referral: [facility] pcp Medications: tylenol norco keflex Scheduled Acetaminophen (Tylenol), 650 MG PO TID Cephalexin (Keflex Capsule), 1 CAP PO QID Scheduled PRN Hydrocodone-Acetaminophen (Hydrocodone Bitartrate/AC 5-325 mg), 1 TAB PO TID PRN Discharge Statement: "Patient was advised to return to the ER or call 911 if any headaches, dizziness, shortness of breath, chest pain, abdominal pain, bleeding, fevers, or worsening of medical condition. Patient was counseled about treatment plan, medications, possible side effects, patientverbalized understanding. All questions were answered to the best of my ability. This discharge took greater then 30 minutes in planning, reviewing documentation, counseling the patient, and discussing with other team members." ASSESSMENT ASSESSMENT Assessment acute appendicitis s/p laparoscopic appy Date of Service: Mar 17, 2025 Billing Provider: DERIK SINGER MD Common Visit Codes: 59850-LDV/OBS DISCH DAY >30min DERIK SINGER MD Mar 17, 2025 14:11
[2025-03-17] MEDS ORDERED: ROCURONIUM 10MG/ML 10ML VIAL IV ONE (16:18)
== END 2025-03-17 16:19 | disposition home or self-care (01) | DRG 398 ==
LOC: ER 18:20 → EDBD 18:20 → OVERFLOW 03-16 00:48 → EAST 03-16 15:15
PROVIDERS: ADMIT Nurse Practitioner Family; ATTEND Nurse Practitioner Family
PROC: 0DTJ4ZZ Resection of Appendix, Percutaneous Endoscopic Approach (ICD-10-PCS; principal; 2025-03-16 12:55)
DX: K35.80 Unspecified acute appendicitis (principal); N39.0 Urinary tract infection, site not specified; D72.829 Elevated white blood cell count, unspecified
CPT/HCPCS: 36415; 74177; 80053; 81001; 81025; 83690; 85025; 85610; 85730; 86850; 86900; 86901; 87040; 96361; 96365; 96375; G0378; J0131; J2003; J2250; J2405; J2543; J2704